=== PATIENT | female | born 1970 | race Caucasian/White ===

== ENCOUNTER 2023-02-05 13:20 | Emergency (ER) | payer MEDICAID, OTHER ==
[~2023-02-05] VITALS: Ht 160 cm; Wt 72.5 kg
[2023-02-05 13:20] VITALS: BP 76/27
[2023-02-05] MEDS ORDERED: EPINEPHrine 0.1 MG/ML 10 ML EMERGENCY SYR INJ ONE (13:27)
[2023-02-05] MEDS ORDERED: ATROPINE 1 MG/10 ML EMERGENCY SYRINGE INJ ONE (13:27)
[2023-02-05] MEDS ORDERED: EPINEPHrine (PYXIS DRIP KIT ONLY) 1 MG/ML X 4 AMPS ONE (13:44)
[2023-02-05] MEDS ORDERED: NS (IVPB) 250 ML 250 ML ONE (13:45)
--- NOTE | 2023-02-05 14:10 | ED CPR ---
HPI-CPR General Chief Complaint: Code Blue Stated Complaint: POST CODE BLUE Source of Information: EMS, Family Exam Limitations: Physical Impairments History of Present Illness Date Seen by Provider: Feb 05, 2023 Time Seen by Provider: 13:20 Initial Comments Tete is a 52 year old woman who presents to the ER via EMS after suffering cardiac arrest in her home. History is provided by EMS and her family, particularly her father who found her unresponsive. Her father reports Uday had been feeling ill last night. She had been experiencing diaphoresis and fever. She declined medical attention at that time. Her father checked on her today and then went to the store. When he returned from the store he found her unresponsive and without a pulse slumped over on the toilet. He called 911. This was approximately 1235 he was instructed to start CPR. Duration of downtime is uncertain. Father had been away from the home for more than 30 minutes. EMS arrived and started CPR. I-gel was used to secure the airway. EMS administered CPR and multiple rounds of epinephrine. She had asystole on the monitor with no pulse. The shift captain contacted me in the field to discuss the situation. Given the unwitnessed arrest and prolonged downtime with no response, termination of efforts was considered. During that phone conversation patient regained pulse. She was brought to the emergency room and was pulseless on arrival. She had received a total of 4 rounds of epinephrine and 1 amp of sodium bicarb in the field. An epinephrine drip with 2 mg and a 500 mL saline bag was initiated. CPR was not in progress on arrival, but she was pulseless on initial check. She arrived to this ER at 1320, approximately 45 minutes after being found down. Patient was completely unresponsive with fixed and dilated pupils. She appeared to have no respiratory effort. She had not received any sedation or paralytics. CPR was resumed. Tete was a known long-term alcoholic who reportedly drank alcohol daily and regularly. No other substance abuse was suspected. She was not hypoglycemic in the field per EMS. Allergies and Home Medications Allergies Coded Allergies: No Known Drug Allergies (Unverified , 02/05/23) Patient Home Medication List Home Medication List Reviewed: Yes Review of Systems Review of Systems Constitutional: see HPI EENTM: See HPI Respiratory: See HPI Cardiovascular: See HPI Gastrointestinal: No Symptoms Reported Genitourinary: No Symptoms Reported Musculoskeletal: no symptoms reported Skin: change in color, other (Mostly cyanotic with some mottling) Psychiatric/Neurological: See HPI Endocrine: No Symptoms Reported Hematologic/Lymphatic: No Symptoms Reported Past Ugggokd-Cpohzf-Annsqh Hx Patient Social History Alcohol Use?: Yes Alcohol Frequency: Daily Past Medical History Cardiac: Yes Hypertension Psychosocial: Yes (Alcoholism) Anxiety Physical Exam Vital Signs Vital Signs - First Documented 02/05/23 13:20 Pulse 0 Resp 0 B/P (MAP) 76/27 (43) Pulse Ox 65 O2 Delivery Ambu Bag Capillary Refill : Height, Weight, BMI Height: '" Weight: lbs. oz. kg; BMI Method: General Appearance: Other (unresponsive) HEENT: Normal ENT Inspection, Other (bruising on the bridge of the nose. pupils fixed and dilated) Neck: Normal Inspection Respiratory: Normal Breath Sounds (with bag ventilation through i-gel) Cardiovascular: Tachycardia Gastrointestinal: No Distended Extremity: Normal Inspection Neurologic/Psychiatric: Other (no neurologic activity) Skin: Cyanosis Progress/Results/Core Measures Results/Orders My Orders Orders - NAVEEN VASQUEZ MD Epinephrine (Pyxis Drip Kit) (Epinephrin (02/05/23 13:44) Ns (Ivpb) 250 Ml (Sodium Chloride 0.9% 2 (02/05/23 13:45) Atropine Inj 1 Mg Syringe (Atropine Inj (02/05/23 13:27) Epinephrine Emergency Syringe (Epinephr (02/05/23 13:27) Vital Signs/I&O 02/05/23 13:20 Pulse 0 Resp 0 B/P (MAP) 76/27 (43) Pulse Ox 65 O2 Delivery Ambu Bag Critical Care Note Critical Care Start Time: 13:20 Stop Time: 14:03 Total Time (minutes) 43 minutes Date of : Feb 05, 2023 Time of : 14:03 Progress Tete was found to be pulseless on initial pulse check. The epinephrine drip was stopped. Epinephrine 1 mg IO was administered at 1326. At 1328 pulse check revealed no pulse. Bilateral breath sounds were auscultated during bag ventilation through the i-gel. CPR was resumed. Dinesh instrument was employed. CPR continued. Epinephrine 1 mg was administered at 1329 by IV route. Pupils were noted to be fixed and dilated. Patient continued to be unresponsive. Pulse check at 1331 revealed a faint carotid pulse. Sinus tachycardia was noted on the monitor. The epinephrine drip initiated by EMS was resumed. Pulse check at 1334 revealed no pulse. Patient was in PEA. CPR was resumed. Epinephrine drip was stopped and a 1 mg epinephrine bolus was administered. It did not appear that the epinephrine drip was maintaining her cardiac function. She was dependent on the 1 mg epinephrine boluses to maintain a pulse. Pulse check at 1 337 again revealed PEA. Epinephrine 1 mg IV was administered at 1338. Pulse check at 1340 revealed a faint carotid pulse. Epinephrine drip was resumed. Chest compressions were discontinued. Monitor demonstrated sinus tachycardia. At 1348 I discussed the situation with the family. Patient had experienced multiple cardiac arrests with a prolonged downtime and an unwitnessed arrest. I discussed the poor prognosis with family. Patient was requiring epinephrine boluses to maintain cardiac function which was an indicator of extremely poor prognosis. She also had demonstrated no neurologic activity and had remained mottled and cyanotic. There was almost certain risk of significant end oragan damage should patient survive these efforts. Family requested resuscitation efforts be discontinued. Patient selected AYAH was her aunt who was present for these discussions. They were at bedside when efforts were discontinued. Epinephrine drip was discontinued at 1348. Ventilation efforts were stopped and i-gel was removed. Patient had 2 or 3 agonal breaths but demonstrated no other neurologic activity. Pupils remained fixed and dilated. I remained in the room with patient and family until time of was pronounced at 1403 when patient lost her faint pulse. Although patient had a pulse at the time resuscitation efforts were discontinued, all parties involved felt that further efforts were futile in attempting to regain any quality of life. Through shared decision making, the family, this provider, and the care team had essentially unanimously determined comfort care was the most appropriate course of action. Patient exhibited no signs of pain or discomfort until pronouncement of . She did not require any comfort medications. I did contact the primary care provider's office which was [facility] in [place], [place]. Her providers were noted to be Jory Keith and Elvira Hi based on her medication filling record. A provider was not available at the time of my call. I requested an emergent call back but never received that call. Family did not desire autopsy. Newspaper Columnist was not contacted as patient had known chronic conditions including severe alcoholism and was believed to have acute illness prior to the arrest according to her father. Departure Impression Primary Impression: Cardiac arrest Additional Impressions: Alcoholism Febrile illness Disposition: 20 Condition: Departure-Patient Inst. Referrals: NO,LOCAL PHYSICIAN (PCP/Family) Primary Care Physician NAVEEN VASQUEZ MD Feb 05, 2023 14:10
== END 2023-02-05 17:50 | disposition expired ==
LOC: EDUNIT# 13:25 → EDBD 13:26 → ER 13:26
DX: I46.9 Cardiac arrest, cause unspecified (principal); F10.20 Alcohol dependence, uncomplicated; R50.9 Fever, unspecified
CPT/HCPCS: 99291